=== PATIENT | female | born 1980 | race Caucasian/White ===

== ENCOUNTER 2023-06-18 22:19 | Emergency (ER) | payer OTHER ==
[2023-06-18 22:27] VITALS: BMI 24.7
[2023-06-19 04:25] VITALS: BP 129/85; PULSE 79; RESP 15; TEMP 98.1
== END 2023-06-19 05:21 | disposition short-term general hospital (02) ==
LOC: JER 22:19
DX: N61.1 Abscess of the breast and nipple (principal)
CPT/HCPCS: 76642-TC-LT; 99285-25